=== PATIENT | female | born 1995 | race Two or more races ===

== ENCOUNTER 2018-10-11 15:10 | Emergency (ER) | payer BC ==
[~2018-10-11] VITALS: Ht 160 cm; Wt 43.7 kg
--- NOTE | 2018-10-11 15:34 | NUR ---
First contact with pt. Pt c/o KOROMA intermittently "for months", this particular instance lasting 3 weeks. Pt states pain is all over her head, nothing makes it better or worse. Neuro intact.
--- NOTE | 2018-10-11 15:46 | NUR ---
resident at bedside to evaluate pt.
[2018-10-11] MEDS ORDERED: DIPHENHYDRAMINE 50 MG/ML, 1ML IVPush ONE (16:00)
[2018-10-11] MEDS ORDERED: KETOROLAC 30 MG/1 ML IVPush ONE (16:00)
[2018-10-11] MEDS ORDERED: PROCHLORPERAZINE 5 MG/ML, 2ML IVPush ONE (16:00)
[2018-10-11] MEDS ORDERED: SODIUM CHLORIDE 0.9% 1,000ML IVBOLUS ONE (16:00)
[2018-10-11] MEDS ORDERED: SODIUM CHLORIDE FLUSH 10ML SYR IVF ONE (16:00)
[2018-10-11] MEDS ORDERED: PROCHLORPERAZINE 5 MG/ML, 2ML ONE (16:01)
[2018-10-11] MEDS ORDERED: DIPHENHYDRAMINE 50 MG/ML, 1ML ONE (16:02)
[2018-10-11] MEDS ORDERED: KETOROLAC 30 MG/1 ML ONE (16:02)
--- NOTE | 2018-10-11 16:14 | NUR ---
Pt medicated per MAR, denies other needs.
--- NOTE | 2018-10-11 16:48 | NUR ---
Pt ambulatory to bathroom and back to bed without difficulty. Pt positioned self for comfort in bed, resting in bed with eyes closed, resp even and unlabored, NADN.
[2018-10-11 17:33] VITALS: BP 111/64
--- NOTE | 2018-10-11 17:33 | NUR ---
Pt states KOROMA improved after medications given.
== END 2018-10-11 17:35 | disposition home or self-care (01) ==
LOC: ED 16:25
DX: R51 Headache (principal); R11.2 Nausea with vomiting, unspecified
CPT/HCPCS: 96361; 96374; 96375; 99283; J0780; J1200; J1885; J7030